=== PATIENT | male | born 1955 | race Caucasian/White ===

== ENCOUNTER 2020-02-14 02:56 | Emergency (ER) | payer MEDICAID ==
[~2020-02-14] VITALS: Ht 152.4 cm; Wt 102.1 kg
[2020-02-14 03:28] VITALS: Ht 152.4 cm; Wt 102.1 kg
[2020-02-14 10:57] VITALS: BP 156/101
== END 2020-02-14 09:45 | disposition home or self-care (01) ==
LOC: ED 02:56
DX: R07.89 Other chest pain (principal); R00.2 Palpitations; E11.9 Type 2 diabetes mellitus without complications; Z98.890 Other specified postprocedural states
CPT/HCPCS: 82962